=== PATIENT | female | born 1960 | race Caucasian/White ===

== ENCOUNTER → 2017-07-24 | Outpatient (CLI) | payer BC ==
--- NOTE | 2017-07-24 13:53 | MAMMOGRAPHY REPORT ---
UNILATERAL LEFT DIGITAL DIAGNOSTIC MAMMOGRAM: 07/24/2017 CLINICAL HISTORY: Callback from screening mammogram for left breast calcifications. TECHNIQUE: Spot magnification left CC and ML views were obtained. COMPARISON: Comparison is made to exams dated: 06/24/2017 mammogram, 06/19/2016 mammogram, 06/18/2015 mammogram, 06/15/2014 mammogram, 06/14/2013 mammogram - [facility], and 02/09/2007. BREAST COMPOSITION: There are scattered areas of fibroglandular density in the left breast. FINDINGS: There are loose groupings of calcifications seen within the left lateral breast on the spo t magnification views. When compared to prior exams, the calcifications do not appear significantly changed compared to full-field views from the 2015 exam. Many of the calcifications demonstrate laye ring on the lateral view, suggestive of benign milk of calcium. No focal suspicious cluster of calci fications is seen. The calcifications are probably benign and likely represent milk of calcium/fibro cystic changes. Recommend follow-up diagnostic mammograms of the left breast in 6 months to confirm stability on spot magnification views. IMPRESSION: ACR-BI-RADS CATEGORY 3: PROBABLY BENIGN Loosely grouped calcifications in the left lateral breast are likely stable dating back to the 2015 e xam and are probably benign. Recommend follow-up diagnostic mammograms of the left breast in 6 month s to confirm stability on spot magnification views. The patient has been verbally notified of the results. Approximately 10% of breast cancers are not detected with mammography. A negative mammographic report should not delay biopsy if a clinically suggestive mass is present. Meliza Asif M.D. ah/:07/24/2017 12:15:33 [employer] Mender: Loreta SAM(Arnold)(Tamera), [facility] letter sent: Follow Up Recommended 3 BI-RADS Code: ACR-BI-RADS Category 3: Probably Benign
== END | disposition home or self-care (01) ==
LOC: C.MAMM 11:09
PROVIDERS: ATTEND Family Medicine
DX: R92.0 Mammographic microcalcification found on diagnostic imaging of breast (principal)

== ENCOUNTER 2017-11-28 22:09 | Emergency (ER) | payer BC, OTHER ==
[~2017-11-28] VITALS: Ht 170.2 cm; Wt 91.6 kg
[2017-11-28 22:16] VITALS: Ht 170.2 cm; Wt 91.6 kg
[2017-11-28] MEDS ORDERED: DiphenhydrAMINE HCL 50 MG/ML VIAL IV STA (22:44)
[2017-11-28] MEDS ORDERED: KETOROLAC TROMETHAMINE 30 MG/ML VIAL IV STA (22:44)
[2017-11-28] MEDS ORDERED: DEXAMETHASONE SOD INJ 4 MG/ML VIAL IV STA (22:44)
[2017-11-28] MEDS ORDERED: PROCHLORPERAZINE 5 MG/ML 2 ML VIAL IV STA (22:44)
[2017-11-28] MEDS ORDERED: SODIUM CHLORIDE 0.9% 1000ML 1,000 ML IV STA (22:44)
[2017-11-28 23:33] VITALS: TEMP 36.5
[2017-11-28] MEDS ORDERED: MoRPHine SULFATE 10 MG/ML CARP/VIAL IV STA (23:42)
[2017-11-28] MEDS ORDERED: ONDANSETRON INJ 2 MG/ML 2 ML VIAL IV STA (23:59)
--- NOTE | 2017-11-29 00:36 | EMERGENCY ROOM VISIT NOTE ---
History First contact with patient: 22:25 Chief Complaint: HEADACHE Stated Complaint: MIGRAINE,NAUSEA History of Present Illness The patient is a 57 year old female who presents to the Emergency Room with complaints of a migraine headache. The patient reports that she developed a migraine headache approximately 5 hours ago. She reports a history of migraines and states this is similar to previous migraines she has had. She reports pain in her head, nausea, and sensitivity to light and sound. She took Phenergan and Fioricet at home without relief. She states that she has been seen in the ED for headaches before and has received "a migraine cocktail." She rates her discomfort a 10/10 but states this is not the worst headache of her life. She denies neck stiffness, recent illness or fevers. She denies numbness/weakness or neurological symptoms. Review of Systems A complete 10 point review of systems was reviewed with the patient with pertinent positives and negatives as per history of present illness. All else were negative. Past Medical/Surgical History Medical Problems: (1) Migraine headache Social History Smoking Status: Never Smoker Housing Status: lives with family Current/Historical Medications No Active Prescriptions or Reported Meds Physical Exam Vital Signs Date Time Temp Pulse Resp B/P (MAP) Pulse Ox O2 Delivery O2 Flow Rate FiO2 11/29/17 00:37 66 18 118/66 94 Room Air 11/28/17 23:33 36.5 76 18 139/83 97 Room Air 11/28/17 22:16 86 20 134/85 98 Room Air Physical Exam VITALS: Vitals are noted on the nurse's note and reviewed by myself. Vital signs stable. GENERAL: This is a 57-year-old female, in no acute distress, nondiaphoretic, well-developed well-nourished. SKIN: The skin was without rashes. HEAD: Normocephalic atraumatic. EARS: External auditory canals clear, tympanic membranes pearly min without erythema or effusion bilaterally. EYES: Pupils equal round and reactive to light and accommodation. Extraocular movements intact. MOUTH: Mucous membranes moist. Tonsils are not enlarged. Pharynx without erythema or exudate. NECK: Supple without nuchal rigidity. No lymphadenopathy. HEART: Regular rate and rhythm without murmurs gallops or rubs. LUNGS: Clear to auscultation bilaterally without wheezes, rales or rhonchi. . MUSCULOSKELETAL: Strength 5/5 throughout. NEURO: Patient was alert and oriented to person place and time. Normal sensation to light and sharp touch. No focal neurological deficits. Medical Decision & Procedures Medications Administered Medications (Trade) Dose Ordered Sig/Ashanti Route Start Time Stop Time Status Last Admin Dose Admin Prochlorperazine Edisylate (Compazine Inj) 10 mg NOW STAT IV 11/28/17 22:44 11/28/17 22:45 DC 11/28/17 22:55 10 MG Diphenhydramine HCl (Benadryl Inj) 25 mg NOW STAT IV 11/28/17 22:44 11/28/17 22:45 DC 11/28/17 22:55 25 MG Ketorolac Tromethamine (Toradol Inj) 30 mg NOW STAT IV 11/28/17 22:44 11/28/17 22:45 DC 11/28/17 22:56 30 MG Dexamethasone Sodium Phosphate (Decadron Inj) 10 mg NOW STAT IV 11/28/17 22:44 11/28/17 22:45 DC 11/28/17 22:55 10 MG Sodium Chloride 1,000 ml @ 999 mls/hr Q1H1M STAT IV 11/28/17 22:44 11/28/17 23:44 DC 11/28/17 22:44 999 MLS/HR Morphine Sulfate (MoRPHine SULFATE INJ) 6 mg NOW STAT IV 11/28/17 23:42 11/28/17 23:43 DC 11/28/17 23:55 6 MG Ondansetron HCl (Zofran Inj) 4 mg NOW STAT IV 11/28/17 23:59 11/29/17 00:00 DC 11/29/17 00:04 4 MG ED Course The patient was evaluated as above. IV access was obtained. Patient was medicated with IV fluids, Toradol, Benadryl, Compazine and Decadron. Patient was reevaluated and is feeling somewhat better, but states her pain is still about a 7/10. Patient was given a dose of morphine. She reported nausea after this and was then given a dose of Zofran. Patient was reevaluated and she was feeling much better at this time. Discharge instructions were reviewed with the patient. The patient verbalized understanding of my assessment and treatment plan and was discharged home in good condition. Medical Decision The differential diagnosis includes acute intracranial bleed, meningitis, encephalitis, mass or mass effect, sinusitis, infection, tumor, headache, temporal arteritis and carbon monoxide exposure, and migraine. The patient was evaluated as above. She presents with symptoms consistent with previous migraine headaches. She has no new neurological symptoms. No fever or meningismus. This is not the worst headache of her life. She was treated with multiple medications as above with significant improvement of her symptoms. Patient was advised to follow-up with her PCP and neurologist for further evaluation and treatment of her headaches. She was discharged home in good condition and rated her discomfort a 2/10 at that time. Medication Reconcilliation Current Medication List: was personally reviewed by me Blood Pressure Screening Patient's blood pressure: Normal blood pressure Impression Primary Impression: Migraine Departure Information Dispostion Home / Self-Care Condition GOOD Prescriptions No Active Prescriptions or Reported Meds Referrals Kena Salvador M.D. (PCP) Patient Instructions [facility] Additional Instructions You have been treated in the Emergency Department for a Headache. You have received pain medicine in the emergency department which impairs your ability to operate a vehicle. It is illegal for you to drive after receiving these medicines. For pain control, you can use the following [id number] medicines (if >12 yo): - Regular strength (325mg/tab) Tylenol (acetaminophen) 2 tabs every 4-6 hours as needed. Do not exceed 12 tablets in a 24 hour period. Avoid taking more than 4 grams (4000 mg) of Tylenol per day. This includes any other sources of acetaminophen you may take on a regular basis. - Regular strength (200 mg/tab) Advil (ibuprofen) 1-2 tabs every 4-6 hours as needed. Do not exceed a dose of 3200 mg per day. You should relax in a quiet, dark place for the rest of the day. Avoid any possible triggers including: cigarette smoke, caffeine, nicotine, chocolate, wine, beer, loud noises or music, or bright lights. You should schedule a follow-up appointment in 2-3 days with your Primary Care Provider or established Neurologist for further evaluation and treatment of your Headache. Return to the Emergency Department if your current symptoms worsen despite treatment course outlined above, or if you develop any of the following symptoms : intractable pain despite aforementioned treatment course, visual disturbances , loss of vision, unilateral weakness or facial drooping, slurring of speech, loss of coordination, or loss of consciousness. Problem Qualifiers Primary Impression: Migraine Migraine type: unspecified Status migrainosus presence: without status migrainosus Intractability: not intractable Qualified Codes: G43.909 - Migraine, unspecified, not intractable, without status migrainosus
[2017-11-29 00:37] VITALS: BP 118/66; PULSE 66; O2SAT 94
== END 2017-11-29 00:40 | disposition home or self-care (01) ==
LOC: C.EDB 22:10 → C.EDA 11-29 00:40
DX: G43.909 Migraine, unspecified, not intractable, without status migrainosus (principal)